=== PATIENT | male | born 2000 | race Two or more races ===

== ENCOUNTER 2024-08-06 23:51 | Emergency (ER) | payer MEDICAID, SELFPAY ==
[2024-08-06 23:55] VITALS: BP 126/85; PULSE 88; RESP 22; TEMP 36.9; O2SAT 98; BMI 50.5
--- NOTE | 2024-08-07 00:05 | PD.EDDENTL ---
ED Dental RME/HPI General Chief complaint: Dental/Oral/Throat Stated complaint: RIGHT UPPER TOOTH PAIN Time Seen by Provider: 08/06/24 23:52 Arrival date/time: 08/06/24 23:51 RME / HPI RME / HPI Narrative: 23-year-old male presents to the ED with complaint of right upper molar pain since approximately 1 PM today. He denies any previous occurrence. He denies any known cavities or dental abscesses. Location: Tooth # (2 and 3) Related Data Previous Rx's ?Medication ?Instructions ?Recorded albuterol sulfate 90 mcg/actuation 2 puff inhalation QID #8.5 grams 11/13/21 aerosol inhaler azithromycin 250 mg tablet See Rx Instructions PO .COMPLEX #6 11/13/21 tabs amoxicillin 875 mg-potassium 1 tab PO BID #20 tabs 08/07/24 clavulanate 125 mg tablet meloxicam 15 mg tablet 15 mg PO QDAY #10 tabs 08/07/24 Allergies Allergy/AdvReac Type Severity Reaction Status Date / Time No Known Allergies Allergy Verified 11/12/21 22:40 Review of Systems Review of Systems Systems Reviewed: All systems reviewed, normal except as documented Past Medical History Past Medical History CARDIAC: Negative Congestive Heart Failure RESPIRATORY: Negative Chronic Obstructive Pulmonary Disease (COPD) GENITOURINARY: Negative Renal Disease ENDOCRINE: Negative Diabetes Mellitus Type 1 or Diabetes Mellitus Type 2 Social History SMOKING STATUS: Current every day smoker ED Exam Narrative Physical exam: Alert and oriented 23-year-old male, mild acute pain distress patient is afebrile. Blood pressure 126/85, pulse 88, respirations 22 and nonlabored, temp 98.5, O2 sat 98% on room air. Lungs are clear, regular rate and rhythm without murmurs. Molar #2 and 3 with percussive tenderness with what appears to be an apical abscess in the same area with erythema. No pointing noted. No obvious caries noted to these 2 teeth. No sinus tenderness. No submandibular or anterior cervical chain adenopathy noted. Course Course Course Narrative: Patient was given Toradol 30 mg IM as well as Augmentin 875 mg 1 tab p.o. prior to discharge. Quality Measures none Orders Category Date Time Status Amoxicillin/Pot Clav 875 [Augmentin 875] Med 08/07/24 00:07 Discontinued 1 tab PO X1 ONE Ketorolac Inj [Toradol Inj] Med 08/07/24 00:07 Discontinued 30 mg IM X1 ONE Vital Signs Vital signs: Vital Signs Temperature 98.5 F 08/06/24 23:55 Pulse Rate 88 08/06/24 23:55 Respiratory Rate 22 H 08/06/24 23:55 Blood Pressure 126/85 H 08/06/24 23:55 Pulse Oximetry (%) 98 08/06/24 23:55 Oxygen Delivery Method Room Air 08/06/24 23:55 Dental / Oral MDM Narrative MDM Narrative:: 23-year-old male presents to the ED with complaint of right upper molar pain since approximately 1 PM today. He denies any previous occurrence. He denies any known cavities or dental abscesses. Alert and oriented 23-year-old male, mild acute pain distress patient is afebrile. Blood pressure 126/85, pulse 88, respirations 22 and nonlabored, temp 98.5, O2 sat 98% on room air. Lungs are clear, regular rate and rhythm without murmurs. Molar #2 and 3 with percussive tenderness with what appears to be an apical abscess in the same area with erythema. No pointing noted. No obvious caries noted to these 2 teeth. No sinus tenderness. No submandibular or anterior cervical chain adenopathy noted. Patient was given Toradol 30 mg IM as well as Augmentin 875 mg 1 tab p.o. prior to discharge. Patient data External records reviewed:: None Clinical information provided by:: patient Social determinants that could affect healthcare access:: none Patient has the following chronic illnesses:: N/A How is presenting disease/condition affected by chronic disease/condition?: no chronic disease Evaluation data The following diagnostics were reviewed and interpreted by me:: other (specify) (N/A) Lab and/or radiology exams considered but not ordered:: N/A Interpretation Summary: N/A Medications / Prescriptions Medications or Prescriptions considered but not ordered:: N/A Medication administrations:: Medication Administration History Discontinued Medications Amoxicillin/Clavulanate Potassium (Amoxicillin/Pot Clav 875 Tablet) 1 tab PO X1 ONE Stop: 08/07/24 00:08 Last Admin: 08/07/24 00:17 Dose: 1 tab Documented By: RAPHAEL Ketorolac Tromethamine (Ketorolac Inj 60 Mg/2 Ml Vial) 30 mg IM X1 ONE Stop: 08/07/24 00:08 Last Admin: 08/07/24 00:16 Dose: 30 mg Documented By: RAPHAEL Toradol 30 mg IM and Augmentin 875 mg p.o. Consultations Consultation(s) initiated? (list below): No Diagnosis Dental Differential Diagnosis: gingival abscess, dental caries, toothache and dental abscess Most likely diagnosis given after review of the tests above:: Dental abscess Admission Indicated Admission indicated?: not indicated Explain why admission is indicated or not indicated:: Patient is stable for discharge Admission Request Was there a request for admission?: No Admission Attestation Admission request attestation: N/A Disposition Plan Disposition Plan: Discharge Discharge Attestation Discharge Attestation: The patient and all family members were given an opportunity to ask questions and understood the discharge instructions. Discharge instructions specifically effects, indications for sooner follow up or return to the emergency department, and the expected course of current diagnosis. Patient condition: Stable Discharge Plan Plan Patient Disposition: HOME (Self Care) Discharge Disposition comment: Stable Prescriptions/Referrals Prescriptions/Med Rec: New amoxicillin-pot clavulanate 875-125 mg tablet 1 tab PO BID Qty: 20 0RF meloxicam 15 mg tablet 15 mg PO QDAY Qty: 10 0RF No Action azithromycin 250 mg tablet See Rx Instructions .ROUTE .COMPLEX Qty: 6 0RF Rx Instructions: For 250 mg dose pack: take 500 mg today (day 1), then 250 mg for 4 days (days 2-5) albuterol sulfate 90 mcg/actuation HFA aerosol inhaler 2 puff inhalation QID Qty: 8.5 0RF Problem List Clinical Impression: Dental abscess Patient/Caregiver Discharge Instructions Education Materials: ED Dental Abscess Additional Instructions: Take the antibiotics as prescribed and complete the course even though you may be feeling better. Tomorrow morning, contact your dentist to schedule an appointment for later this week. Return to the ED for any new or worsening symptoms. Print Language: Brazilian Stand Alone Forms: [facility] Award Info., Patient Portal Info Letter PA/BIOMETRIC SCREENER Supervising Physician PA/BIOMETRIC SCREENER Supervising Physician: Dr. Estrella
[2024-08-07] MEDS: KETOROLAC INJ 60 MG/2 ML VIAL 30 MG IM (00:16)
[2024-08-07] MEDS: AMOXICILLIN/POT CLAV 875 TABLET 1 TAB PO (00:17)
== END 2024-08-07 00:33 | disposition home or self-care (01) ==
LOC: SERX 08-07 00:29
PROVIDERS: Emergency Provider Emergency Medicine
DX: K04.7 Periapical abscess without sinus (principal)
CPT/HCPCS: 96372; 99283; J1885; A9270